=== PATIENT | female | born 1960 | race African-American/Black ===

== ENCOUNTER 2025-08-10 11:38 | Emergency (ER) | payer OTHER ==
[~2025-08-10] VITALS: Ht 165.1 cm; Wt 91.0 kg
[2025-08-10 11:39] VITALS: BP 117/73; PULSE 92; RESP 18; TEMP 36.8; O2SAT 99
[2025-08-10] MEDS: ASPIRIN 325MG TABLET PO ONE (12:58)
[2025-08-10 12:59] LABS: BASOPHILS % 1.3 % (0.0-2.0); EOSINOPHILS % 0.8 % (0.0-5.0); HEMATOCRIT. 43.9 % (36.0-48.0); HEMOGLOBIN. 14.4 g/dL (12.0-16.0); LYMPHOCYTES % 17.9 % (20.0-50.0); MEAN PLATELET VOLUME 8.3 fl (7.4-10.4); MONOCYTES % 3.0 % (2.0-8.0); NEUTROPHILS % 77.0 % (40.0-76.0); PLATELET 399 x1000/uL (130-400); RED BLOOD CELL COUNT 5.35 mill/uL (4.2-5.4); RED CELL DISTRIBUTION WIDTH 17.5 % (11.6-14.6)
[2025-08-10 13:12] LABS: CREATININE 0.9 mg/dL (0.6-1.0); UREA NITROGEN BLOOD 18 mg/dL (9-23)
[2025-08-10 13:13] LABS: TROPONIN I HIGH SENSITIVITY < 4 ng/L (3.0-34)
[2025-08-10 13:14] LABS: ASPARTATE AMINOTRANSFERASE 26 IU/L (<34); BILIRUBIN DIRECT 0.1 mg/dL (<=3.0); BILIRUBIN TOTAL 0.5 mg/dL (0.1-1.0); PROTEIN TOTAL 7.8 g/dL (6.0-8.3)
== END 2025-08-10 14:38 | disposition left against medical advice (07) ==
LOC: ER 11:48 → CANBEDREQ 14:39
DX: R07.9 Chest pain, unspecified (principal); J44.89 Other specified chronic obstructive pulmonary disease; R06.02 Shortness of breath
CPT/HCPCS: 36415; 71045; 80048; 80076; 83880; 84484; 85025; 93005; 99285